=== PATIENT | female | born 1965 | race Caucasian/White ===

== ENCOUNTER 2020-12-26 21:06 | Emergency (ER) | payer OTHER ==
[2020-12-26 21:45] LABS: HEMOGLOBIN 13.6 gm/dl (12.3-15.3); RED BLOOD COUNT 4.03 M/UL (4.00-5.10); WHITE BLOOD COUNT 7.3 K/UL (4.5-11.0)
[2020-12-26 22:06] LABS: BUN/CREATININE RATIO 16 (0-10)
== END 2020-12-27 00:50 | disposition home or self-care (01) ==
LOC: ER1 21:06
PROVIDERS: Family Medicine
DX: S33.5XXA Sprain of ligaments of lumbar spine, initial encounter (principal); S23.3XXA Sprain of ligaments of thoracic spine, initial encounter; S46.912A Strain of unspecified muscle, fascia and tendon at shoulder and upper arm level, left arm, initial encounter; S16.1XXA Strain of muscle, fascia and tendon at neck level, initial encounter; R51.9 Headache, unspecified; R07.9 Chest pain, unspecified; V49.40XA Driver injured in collision with unspecified motor vehicles in traffic accident, initial encounter; Y92.410 Unspecified street and highway as the place of occurrence of the external cause
CPT/HCPCS: 70450; 71260; 72125; 73030; 80053; 82550; 82553; 83690; 83874; 84484; 85025; 93005; 96374; 99284; J1885; Q9967

== ENCOUNTER → 2021-08-05 | Outpatient (CLI) | payer OTHER | LOC: RAD 15:49 | DX: M25.561 Pain in right knee (principal); M25.562 Pain in left knee; M79.605 Pain in left leg; M17.11 Unilateral primary osteoarthritis, right knee; M25.462 Effusion, left knee | CPT/HCPCS: 73564; 73590 ==

== ENCOUNTER 2021-12-14 21:53 | Emergency (ER) | payer OTHER | END 2021-12-15 00:21 | disposition left against medical advice (07) | LOC: ER1 21:53 | DX: Z53.21 Procedure and treatment not carried out due to patient leaving prior to being seen by health care provider (principal) ==